=== PATIENT | male | born 1985 | race Two or more races ===

== ENCOUNTER → 2018-05-11 | Outpatient (CLI) | payer OTHER ==
[2018-05-11 10:04] LABS: BASO # 0.1 x10^3/uL (0.0-0.2); BASO % 0 % (0-3); EOS % 0 % (0-3); HEMATOCRIT 48.6 % (39.0-53.0); HEMOGLOBIN 16.3 g/dL (13.0-17.5); LYMPH # 2.1 x10^3/uL (1.0-4.8); LYMPH % 7 % (24-48); MEAN CORPUSCULAR HEMOGLOBIN 29 pg (25-35); MEAN CORPUSCULAR HGB CONC 34 g/dL (31-37); MEAN CORPUSCULAR VOLUME 85 fL (79-100); MONO # 2.2 x10^3/uL (0.0-1.1); MONO % 7 % (0-9); NEUT # 27.2 x10^3uL (1.8-7.7); NEUT % 86 % (31-73); PLATELET COUNT 151 x10^3/uL (140-400); RED CELL DISTRIBUTION WIDTH 13.3 % (11.5-14.5); WHITE BLOOD COUNT 31.6 x10^3/uL (4.0-11.0)
[2018-05-11 10:42] LABS: % BANDS 9 % (0-9); % LYMPHS 2 % (24-48); % MONOS 11 % (0-10); % SEGS 72 % (35-66); PLT ESTIMATE ADEQUATE (ADEQUATE)
== END | disposition home or self-care (01) ==
LOC: SPEC 09:51
DX: R10.84 Generalized abdominal pain (principal)
CPT/HCPCS: 36415; 80051; 85007; 85025